=== PATIENT | female | born 1960 ===

== ENCOUNTER 2022-05-10 08:46 | Emergency (ER) | payer OTHER, MEDICARE, BC ==
[~2022-05-10] VITALS: Ht 157.5 cm; Wt 61.2 kg
[2022-05-10] MEDS ORDERED: GABAPENTIN600 MG PO (09:07)
[2022-05-10] MEDS ORDERED: ARMOUR THYROID30 MG PO (09:07)
[2022-05-10] MEDS ORDERED: ADDERALL 10 MG10 MG PO (09:08)
[2022-05-10] MEDS ORDERED: LEXAPRO5 MG PO (09:08)
[2022-05-10] MEDS ORDERED: NEXIUM40 MG PO (09:08)
== END 2022-05-10 13:57 | disposition home or self-care (01) ==
LOC: ED 08:46
DX: S40.012A Contusion of left shoulder, initial encounter (principal); S50.12XA Contusion of left forearm, initial encounter; S50.811A Abrasion of right forearm, initial encounter; E03.9 Hypothyroidism, unspecified; Z79.899 Other long term (current) drug therapy; V69.9XXA Occupant (driver) (passenger) of heavy transport vehicle injured in unspecified traffic accident, initial encounter
CPT/HCPCS: 36415; 70450; 72125; 73030; 73130; 74177; 80053; 82150; 82553; 83605; 83690; 85025; 86850; 86870; 86900; 86901; 99284-25; G0480; J7121; Q9967